=== PATIENT | male | born 2000 | race Hispanic/Latino ===

== ENCOUNTER 2024-09-07 02:50 | Emergency (ER) | payer SELFPAY ==
[2024-09-07 02:59] VITALS: BP 115/84
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
[2024-09-07] MEDS: MOTRIN 600 MG PO (04:48)
== END 2024-09-07 05:02 | disposition home or self-care (01) ==
LOC: EMR 02:50
PROVIDERS: EMERGENCY PHYSICIAN Emergency Medicine
DX: S00.531A Contusion of lip, initial encounter (principal); S00.511A Abrasion of lip, initial encounter; K08.89 Other specified disorders of teeth and supporting structures; Y04.2XXA Assault by strike against or bumped into by another person, initial encounter; Z65.3 Problems related to other legal circumstances
CPT/HCPCS: 99283